=== PATIENT | female | born 1970 | race Caucasian/White ===

== ENCOUNTER 2020-12-07 18:46 | Emergency (ER) | payer SELFPAY ==
[~2020-12-07] VITALS: Ht 162.6 cm; Wt 69.0 kg
[2020-12-07 19:01] VITALS: BP 136/82
[2020-12-07] MEDS ORDERED: HYDROCODONE/ACETAMINOPHEN 5/325MG TABLET PO STA (19:18)
[2020-12-07] MEDS ORDERED: LIDOCAINE HCL 1% 20ML VIAL (Pyxis) INJ INFIL ONE (20:45)
[2020-12-07] MEDS ORDERED: KETOROLAC 30MG/ML VIAL IV ONE (20:45)
[2020-12-07] MEDS ORDERED: KETOROLAC 30MG/ML VIAL IM ONE (21:15)
[2020-12-07] MEDS ORDERED: HYDR-4001 MT (22:31)
== END 2020-12-07 22:47 | disposition home or self-care (01) ==
LOC: ER 18:46
DX: S82.291A Other fracture of shaft of right tibia, initial encounter for closed fracture (principal); S82.491A Other fracture of shaft of right fibula, initial encounter for closed fracture; V03.00XA Pedestrian on foot injured in collision with car, pick-up truck or van in nontraffic accident, initial encounter; Y93.01 Activity, walking, marching and hiking; Y92.410 Unspecified street and highway as the place of occurrence of the external cause; Z98.890 Other specified postprocedural states
CPT/HCPCS: 29515; 73590; 73610; 73630; 96372; 99284; J1885; J3490